=== PATIENT | female | born 1990 | race Caucasian/White ===

== ENCOUNTER 2023-10-11 15:22 | Emergency (ER) | payer SELFPAY ==
[~2023-10-11] VITALS: Ht 170.2 cm; Wt 68.0 kg
[2023-10-11 15:25] VITALS: O2SAT 97
[2023-10-12 10:27] LABS: BASOPHILS % 0.7 % (0.0-2.0); HEMATOCRIT. 39.6 % (36.0-48.0); HEMOGLOBIN. 13.3 g/dL (12.0-16.0); LYMPHOCYTES % 39.5 % (20.0-50.0); MEAN CORPUSCULAR HEMOGLOBIN 29.3 pg (28.0-32.0); MEAN CORPUSCULAR HGB CONC 33.5 g/dL (31.0-37.0); MEAN CORPUSCULAR VOLUME 87.3 fL (81.0-99.0); MEAN PLATELET VOLUME 9.5 fl (7.4-10.4); MONOCYTES % 6.7 % (2.0-8.0); NEUTROPHILS % 50.1 % (40.0-76.0); PLATELET 240 x1000/uL (130-400); RED BLOOD CELL COUNT 4.54 mill/uL (4.2-5.4); RED CELL DISTRIBUTION WIDTH 14.8 % (11.6-14.6); WHITE BLOOD COUNT 7.8 x1000/uL (4.5-11.0)
[2023-10-12 10:34] LABS: CHLORIDE 105 mEq/L (98-107); SODIUM 136 mEq/L (136-145)
[2023-10-12 10:35] LABS: CARBON DIOXIDE 25 mEq/L (21-32)
[2023-10-12 10:40] LABS: CREATININE 0.6 mg/dL (0.6-1.0); GLUCOSE 102 mg/dL (70-105); UREA NITROGEN BLOOD 8 mg/dL (9-23)
[2023-10-12 10:42] LABS: ACETAMINOPHEN < 2 ug/mL (10-30)
[2023-10-12 10:54] LABS: ETHANOL BLOOD < 10 mg/dL (<10)
[2023-10-12 11:04] LABS: CALCIUM 9.3 mg/dL (8.7-10.4)
[2023-10-12] MEDS: LORAZEPAM 1MG TABLET PO ONE (11:20)
[2023-10-12 12:22] LABS: HCG SCREEN NEGATIVE
[2023-10-12 17:28] LABS: CLARITY URINE CLEAR (CLEAR); COLOR URINE YELLOW (YELLOW); GLUCOSE URINE NEGATIVE (NEGATIVE); KETONES URINE 2+ (NEGATIVE); LEUKOCYTE ESTERASE URINE 1+ (NEGATIVE); NITRITE URINE POSITIVE (NEGATIVE); OCCULT BLOOD URINE NEGATIVE (NEGATIVE); PH URINE 5.5 (4.5-8.0); PROTEIN URINE NEGATIVE (NEGATIVE); SPECIFIC GRAVITY URINE 1.022 (1.005-1.030)
[2023-10-12 17:40] LABS: *AMPHETAMINES SCREEN URINE PRESUMPTIVE POSITIVE (NEGATIVE); *BARBITURATES SCREEN URINE NEGATIVE (NEGATIVE); *BENZODIAZEPINES SCREEN URINE NEGATIVE (NEGATIVE); *COCAINE SCREEN URINE NEGATIVE (NEGATIVE); CANNABINOID URINE SCREEN NEGATIVE (NEGATIVE); ECSTASY MDMA SCREEN URINE CONF.TEST INDICATED (NEGATIVE); METHADONE URINE SCREEN NEGATIVE (NEGATIVE); OPIATES URINE SCREEN NEGATIVE (NEGATIVE); PHENCYCLIDINE URINE SCREEN NEGATIVE (NEGATIVE)
[2023-10-12 17:54] LABS: BACTERIA URINE 2+; RBC URINE 0-2 /hpf (0-2); SQUAMOUS EPITHELIAL CELL URINE 1+ /lpf (RARE/1+)
[2023-10-13] MEDS: FLUOXETINE HCL 10 MG CAPSULE PO SCH (12:45)
[2023-10-13 15:45] VITALS: BP 123/71; PULSE 83; RESP 16; TEMP 98.1
== END 2023-10-13 16:24 | disposition short-term general hospital (02) ==
LOC: ER 15:22
DX: R45.851 Suicidal ideations (principal); Z20.822 Contact with and (suspected) exposure to COVID-19
CPT/HCPCS: 36415; 80048; 80305; 80307; 80320; 80329; 81001; 84703; 85025; 87426; 99285; G0480